=== PATIENT | male | born 1950 | race Hispanic/Latino ===

== ENCOUNTER → 2018-07-10 | Outpatient (CLI) | payer OTHER | END | disposition home or self-care (01) | LOC: RAH 07:43 | PROVIDERS: ATTEND Internal Medicine | DX: K80.50 Calculus of bile duct without cholangitis or cholecystitis without obstruction (principal); K80.20 Calculus of gallbladder without cholecystitis without obstruction; K76.0 Fatty (change of) liver, not elsewhere classified | CPT/HCPCS: 76700 ==

== ENCOUNTER → 2024-02-06 | Outpatient (CLI) | payer MEDICARE ==
[~2024-02-06] MED LIST: IOHEXOL 350 MG/ML 100ML INFUS..BTL IV ONE
== END | disposition home or self-care (01) ==
LOC: RAH 08:34
PROVIDERS: ATTEND Internal Medicine Gastroenterology
DX: K57.30 Diverticulosis of large intestine without perforation or abscess without bleeding (principal); I70.0 Atherosclerosis of aorta; N32.89 Other specified disorders of bladder; M47.815 Spondylosis without myelopathy or radiculopathy, thoracolumbar region; Z90.49 Acquired absence of other specified parts of digestive tract; Z85.038 Personal history of other malignant neoplasm of large intestine
CPT/HCPCS: 74177; Q9967

== ENCOUNTER → 2024-09-06 | Outpatient (CLI) | payer MEDICARE ==
[2024-09-06] MEDS: REGADENOSON 0.4 MG/5 ML PF SYG IVP ONE (15:42)
--- NOTE | 2024-09-10 13:23 | HMCSR ---
APPROVED REPORT Height: 5 ft 8in Weight: 202 lbs TEST INDICATIONS CAD The imaging protocol used to acquire images was Rest Tc-99m/stress Tc-99m 1 day Consent: The procedure was explained and understood by the patient. Informerd consent was witnessed Laverne NEVILLE RN First, low dose rest was performed then high dose stress. RESTING DATA: The resting ekg shows: Inferior T wave inversions III Rest SPECT myocardial perfusion imaging was performed in supine position 80 minutes following the int ravenous injection of 11.4 mCi of Tc-99 Sestamibi. Time of rest injection: 08:44: Date: 09/06/2024 Time of rest imagin:04: Date: 09/06/2024 PHARMACOLOGIC STRESS: Pharmacologic stress test was performed by injecting regadenoson 0.4 mg IV push followed by the intra venous injection of 32.5 mCi of Tc-99 Sestamibi. Time of stress injection: 10:28: Date: 09/06/2024 Time of stress imagin:58: Date: 09/06/2024 Heart Rate at time of stress injection: 77 bpm. Gated Stress SPECT was performed 90 minutes after stress injection. The images were gated to evaluate regional wall motion and calculate left ventricular ejection fracti on. STRESS DETAILS Reason for Termination: Infusion complete Stress Symptoms: CHEST TIGHTNESS Max HR Achieved: 98 bpm % of APMHR Achieved: 66 Max Blood Pressure: 138/82 mmHg Stress ECG: NSR, inferior III Study quality was good. Lung uptake was Normal. Artifact: No artifact LEFT VENTRICLE Size: The left ventricular size is normal. Systolic Function:The left ventricular systolic function is normal. Wall Motion: No regional wall motion abnormalities noted. The left ventricular ejection fraction was calculated to be 57%.TID = . LV PERFUSION Medium size, mild severity reversible perfusion defect of the basal anteroseptal segment. Medium sizes, moderate severity fixed defect at the apex. Transient ischemic dilation of the left ventricle is present. RV Size/Shape Not visualized. IMPRESSION Abnormal pharmacologic nuclear stress test. Global LV Function: Normal Stress ECG Summary: Nondiagnostic LV Perfusion Summary: Abnormal LV Viability Summary: Potentially viable myocardium Conclusion Medium size, mild severity reversible perfusion defect of the basal anteroseptal segment. Medium sizes, moderate severity fixed defect at the apex. Transient ischemic dilation of the left ventricle is present. LV systolic function is normal with EF 57% Results indicate high risk for cardiac events
== END | disposition home or self-care (01) ==
LOC: SHCH 08:16
PROVIDERS: ATTEND Internal Medicine
DX: I49.3 Ventricular premature depolarization (principal); I25.10 Atherosclerotic heart disease of native coronary artery without angina pectoris; R07.9 Chest pain, unspecified; R10.9 Unspecified abdominal pain
CPT/HCPCS: 78452; 93017; J2785; A9500 ×2